=== PATIENT | female | born 1995 | race Caucasian/White ===

== ENCOUNTER 2020-10-16 22:25 | Emergency (ER) | payer OTHER ==
[~2020-10-16] VITALS: Ht 167.6 cm; Wt 75.0 kg
[2020-10-16] MEDS ORDERED: IBUPROFEN 600 MG TABLET ONE (22:34)
[2020-10-16] MEDS ORDERED: ACETAMINOPHEN 500 MG TABLET ONE (22:34)
--- NOTE | 2020-10-16 22:53 | NUR ---
Pt seen at triage by Nikolay, medicated per order urine cup given and sent to lab.
[2020-10-16 22:56] LABS: MICROSCOPIC AUTO
[2020-10-16] MEDS ORDERED: ACETAMINOPHEN 500 MG TABLET PO ONE (23:00)
[2020-10-16] MEDS ORDERED: IBUPROFEN 600 MG TABLET PO ONE (23:00)
[2020-10-16] MEDS ORDERED: SODIUM CHLORIDE 0.9% 1,000ML IVBOLUS ONE (23:00)
[2020-10-16 23:05] LABS: BASOPHILS % (AUTO) 0 % (0-1); EOSINOPHILS % (AUTO) 0 % (1-7); LYMPHOCYTES % (AUTO) 9 % (22-44); MEAN CORPUSCULAR HEMOGLOBIN 32.2 pg (27.0-34.8); MEAN CORPUSCULAR HGB CONC 34.9 g/dL (32.4-35.8); MEAN PLATELET VOLUME 7.1 fL (7.4-10.4); MONOCYTES % (AUTO) 2 % (2-9); NEUTROPHILS % (AUTO) 89 % (42-75); PLATELET COUNT 209 x10^3/uL (130-400); RED BLOOD COUNT 4.34 x10^6/uL (3.82-5.3); RED CELL DISTRIBUTION WIDTH 12.8 % (9.6-15.2)
[2020-10-16 23:08] LABS: ALANINE AMINOTRANSFERASE 16 U/L (12-78); ALBUMIN 3.9 g/dL (3.4-5.0); ANION GAP 9 mmol/L (5-15); CALCIUM 8.8 mg/dL (8.5-10.1); CHLORIDE 103 mmol/L (98-107); CREATININE 1.19 mg/dL (0.55-1.02)
[2020-10-16 23:10] LABS: ALKALINE PHOSPHATASE 56 U/L (45-117); TOTAL PROTEIN 8.1 g/dL (6.4-8.2)
[2020-10-16 23:34] LABS: MD SCAN
--- NOTE | 2020-10-16 23:43 | NUR ---
.FLOAT RN: PT REPORTS FEVERS/RIGHT LOWER ABD PAIN. VS STABLE. PT SEEN BY DR PIERRE. FAMILY AT BEDSIDE. CALL LIGHT IN PLACE. REPORT GIVEN TO DALY CLARK
[2020-10-17] MEDS ORDERED: CEFTRIAXONE 1,000 MG in DEXTROSE 5% 50 ML IVPB ONE
[2020-10-17 00:27] VITALS: BP 94/47
== END 2020-10-17 01:06 | disposition home or self-care (01) ==
LOC: ED 10-17 01:00
DX: N10 Acute pyelonephritis (principal); N39.0 Urinary tract infection, site not specified; R50.9 Fever, unspecified; Z20.822 Contact with and (suspected) exposure to COVID-19
CPT/HCPCS: 36415; 71045; 80053; 81001; 85025; 87077; 87086; 96361; 96365; 99284; J0696; J7030; U0003; 87186